=== PATIENT | female | born 1980 | race Caucasian/White ===

== ENCOUNTER 2017-08-04 15:31 | Inpatient (IN) | payer OTHER ==
[~2017-08-04] VITALS: Ht 154.9 cm; Wt 67.6 kg
[2017-08-05] MEDS ORDERED: OXYTOCIN/0.9 % SODIUM CHLORIDE 1,000 ML IV SCH ×2 (01:55→11:43)
[2017-08-05] MEDS ORDERED: NALBUPHINE HCL 10 MG/ML AMP IVP PRN (02:00)
[2017-08-05 02:14] VITALS: BP_SYST 105
[2017-08-05 02:40] LABS: BASOPHILS % (AUTO) 0.3 % (0.0-2.0); EOSINOPHILS # (AUTO) 0.2 K/uL (0.0-0.4); EOSINOPHILS % (AUTO) 2.7 % (0.0-4.0); HEMATOCRIT 33.2 % (36-48); HEMOGLOBIN 11.3 g/dL (12.0-16.0); LYMPHOCYTES # (AUTO) 2.7 K/uL (1.0-5.5); MEAN CORPUSCULAR HEMOGLOBIN 30 pg (27-31); MEAN CORPUSCULAR HGB CONC 34 % (32-36); MEAN CORPUSCULAR VOLUME 89 fL (79.0-98.0); MONOCYTES # (AUTO) 0.7 K/uL (0.0-1.0); MONOCYTES % (AUTO) 7.8 % (1.7-9.3); NEUTROPHILS # (AUTO) 5.6 K/uL (1.8-7.7); NEUTROPHILS % (AUTO) 60.2 % (40.0-70.0); PLATELET COUNT (AUTO) 208 K/uL (130-430); RED BLOOD CELL COUNT(AUTO) 3.74 MIL/uL (4.2-6.2); RED CELL DISTRIBUTION WIDTH 12.1 % (9.0-15.0); WHITE BLOOD COUNT (AUTO) 9.2 K/uL (4.8-10.8)
[2017-08-05] MEDS: LR 1,000 ML IV SCH ×3 (03:05→10:46)
[2017-08-05] MEDS ORDERED: ROPIVACAINE 0.2% 100 ML ONE (06:35)
[2017-08-05] MEDS ORDERED: fentaNYL CITRATE/PF 100 MCG/2 ML AMP ONE (06:35)
[2017-08-05] MEDS ORDERED: LR 500 ML IV ONE (08:27)
[2017-08-05] MEDS ORDERED: FENT2mCg/mL-ROPIVA0.2%/NS EPID 150 ML EP SCH (08:30)
[2017-08-05] MEDS ORDERED: OXYTOCIN/0.9 % SODIUM CHLORIDE 1,000 ML IV ONE (11:43)
[2017-08-05] MEDS ORDERED: GLYCERIN/WITCH HAZEL (TUCKS PADS) TP PRN (11:45)
[2017-08-05] MEDS ORDERED: METHYLERGONOVINE MALEATE 0.2 MG TABLET PO PRN (11:45)
[2017-08-05] MEDS ORDERED: HYDROCORTISONE 0.5%, 28.35 GM TOPICAL CREAM TP PRN (11:45)
[2017-08-05] MEDS ORDERED: ANUSOL 1 EA SUPP.RECT (PREPARATION H) RC PRN (11:45)
[2017-08-05] MEDS ORDERED: DIPH-TET-PERTUS Vaccine 0.5 ML VIAL (ADACEL) I.M. PRN (11:45)
[2017-08-05] MEDS ORDERED: ACETAMINOPHEN 325 MG TABLET PO PRN (11:45)
[2017-08-05] MEDS ORDERED: OXYCODONE/ACETAMINOPHEN 5-325 TABLET PO PRN (11:45)
[2017-08-05] MEDS ORDERED: RHO(D) IMMUNE GLOBULIN/MALTOSE 1500 UNITS/1.3 ML (WINHRO) IM PRN (11:45)
[2017-08-05] MEDS ORDERED: MEASLES,MUMPS&RUBELLA VACC/PF 12500 UNIT/0.5 ML VIAL SUBQ PRN (11:45)
[2017-08-05] MEDS ORDERED: LANOLIN 7 GM OINT. TP PRN (11:45)
[2017-08-05] MEDS ORDERED: SENNOSIDES/DOCUSATE SODIUM 1 TAB TABLET(SENOKOT-S) PO PRN (11:45)
[2017-08-05] MEDS ORDERED: DERMOPLAST SPRAY TP PRN (11:45)
[2017-08-05] MEDS: IBUPROFEN 600 MG TABLET PO SCH ×3 (12:23→23:40)
[2017-08-05] MEDS: DOCUSATE SODIUM 100 MG CAPSULE PO PRN (12:23)
[2017-08-05] MEDS ORDERED: LIDOCAINE HCL/PF 1% 10 ML AMPUL INJ ONE (13:39)
[2017-08-05] MEDS: OXYCODONE/ACETAMINOPHEN 5-325 TABLET PO PRN (14:19)
[2017-08-05] MEDS ORDERED: TEMAZEPAM 15 MG CAPSULE PO PRN (21:00)
[2017-08-06] MEDS: IBUPROFEN 600 MG TABLET PO SCH ×2 (06:27→11:58)
[2017-08-06 07:15] LABS: HEMOGLOBIN 10.4 g/dL (12.0-16.0)
[2017-08-06] MEDS: DOCUSATE SODIUM 100 MG CAPSULE PO PRN (11:57)
[2017-08-06] MEDS: OXYCODONE/ACETAMINOPHEN 5-325 TABLET PO PRN (11:59)
== END 2017-08-06 17:10 | disposition home or self-care (01) | DRG 775 ==
LOC: SPU 08-05 01:50
PROVIDERS: ADMIT Obstetrics & Gynecology; ATTEND Obstetrics & Gynecology
PROC: 10E0XZZ Delivery of Products of Conception, External Approach (ICD-10-PCS; principal; 2017-08-06)
PROC: 0KQM0ZZ Repair Perineum Muscle, Open Approach (ICD-10-PCS; 2017-08-06)
PROC: 3E0R3BZ Introduction of Anesthetic Agent into Spinal Canal, Percutaneous Approach (ICD-10-PCS; 2017-08-06)
PROC: 00HU33Z Insertion of Infusion Device into Spinal Canal, Percutaneous Approach (ICD-10-PCS; 2017-08-06)
DX: O70.1 Second degree perineal laceration during delivery (principal); Z37.0 Single live birth; Z3A.40 40 weeks gestation of pregnancy
CPT/HCPCS: 36415; 81002-TC; 85018-TC; 85025; 86886; 86900; 86901; J2001; J2590; J2795; J3010